=== PATIENT | male | born 1955 | race African-American/Black ===

== ENCOUNTER → 2017-06-21 | Outpatient (CLI) | payer OTHER ==
--- NOTE | 2017-06-21 11:48 | RAD ---
Examination: X-rays of the left forearm. Clinical history: Patient fell out of wheelchair, complaining of left arm pain. Technique: Two views of the left forearm were obtained. Comparison: None available. Findings: No acute fracture, dislocation, or destructive bony lesion is noted. No soft tissue abnormality is noted. Impression: 1. No acute fracture or dislocation. Reported By:
--- NOTE | 2017-06-21 11:49 | RAD ---
Indication: Fall and pain Exam: Left hand series. Technique: AP, lateral, and oblique views. Findings: There is moderate narrowing along the 1st MTP joint . There is moderate narrowing along the carpal joint. No fracture or dislocation is seen . The carpal bones are intact. There is moderate kelton int space narrowing throughout the digits. 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 Reported By:
--- NOTE | 2017-06-21 11:49 | RAD ---
Examination: X-rays of the left humerus. Clinical history: Patient fell out of wheelchair, complaining of left arm pain and swelling. Technique: AP and lateral views of the left humerus were obtained. Comparison: None available. Findings: No acute fracture, dislocation, or destructive bony lesion is noted. No soft tissue abnormality is noted. Impression: 1. No acute fracture or dislocation. Reported By:
--- NOTE | 2017-06-21 12:38 | RAD ---
HISTORY: Fall Study: Single-view of the chest Comparison: None Findings: The patient is rotated. The cardiac silhouette is unremarkable. The lungs are clear without focal i nfiltrate or effusion. IMPRESSION: 1. No acute cardiopulmonary disease. Reported By:
== END ==
LOC: RAD 10:57
DX: M25.532 Pain in left wrist (principal); M79.89 Other specified soft tissue disorders; M25.512 Pain in left shoulder; R22.2 Localized swelling, mass and lump, trunk; Z91.81 History of falling
CPT/HCPCS: 71045; 73060; 73090; 73130